=== PATIENT | female | born 1995 | race Hispanic/Latino ===

== ENCOUNTER 2023-05-01 13:32 | Emergency (ER) | payer OTHER ==
[~2023-05-01] VITALS: Ht 165.1 cm; Wt 93.0 kg
[2023-05-01 14:27] LABS: APPEARANCE,URINE CLEAR (CLEAR); BILIRUBIN,URINE NEGATIVE (NEGATIVE); COLOR,URINE LIGHT-YELLOW (YELLOW); GLUCOSE, URINE (UA) NEGATIVE (NEGATIVE); KETONES,URINE NEGATIVE (NEGATIVE); LEUKOCYTE ESTERASE ,URINE NEGATIVE Leu/uL (NEGATIVE); NITRATE,URINE NEGATIVE (NEGATIVE); OCCULT BLOOD,URINE NEGATIVE (NEGATIVE); PH,URINE 6.5 (5.0-8.0); PROTEIN,URINE NEGATIVE (NEGATIVE); UROBILINOGEN,URINE 0.2 mg/dL (0.2-1.0)
[2023-05-01 14:35] LABS: HCG,QUALITATIVE URINE NEGATIVE (NEGATIVE)
[2023-05-01 14:37] LABS: BACTERIA,URINE RARE /HPF (None Seen); MUCUS,URINE RARE LPF (None Seen); SQUAMOUS EPITHELIAL CELL,UR RARE /HPF (0-2)
[2023-05-01 17:04] VITALS: BP 135/80
[2023-05-01] MEDS ORDERED: KETOROLAC 30MG VIAL (30MG/ML) IM ONE (17:30)
[2023-05-01] MEDS ORDERED: MORPHINE 2 MG SYG IVP ONE (17:30)
[2023-05-01] MEDS ORDERED: ONDANSETRON 4MG INJ IVP ONE ×2 (17:30→21:30)
[2023-05-01 17:40] LABS: BASOPHILS % (AUTO) 0.3 % (0.0-5.0); EOSINOPHILS % (AUTO) 0.8 % (0.0-8.0); HEMATOCRIT 39.3 % (36-48); MEAN CORPUSCULAR HGB CONC 31.3 g/dL (32.0-36.0); MEAN CORPUSCULAR VOLUME 89.3 fL (79-99); MONOCYTES % (AUTO) 5.2 % (3.0-13.0); NEUTROPHILS % (AUTO) 69.3 % (40.0-77.0); PLATELET COUNT (AUTO) 270 K/uL (130-400); RED CELL DISTRIBUTION WIDTH 13.4 % (11.0-15.5); WHITE BLOOD COUNT (AUTO) 11.9 K/uL (4.8-10.8)
[2023-05-01 17:50] LABS: CREATININE 0.8 mg/dL (0.5-1.5); POTASSIUM 3.6 mmol/L (3.5-5.1)
[2023-05-01 17:54] LABS: ALBUMIN 3.7 g/dL (3.5-5.0)
[2023-05-01] MEDS ORDERED: IOHEXOL-350 75 ML VIAL IV ONE (19:59)
[2023-05-01] MEDS ORDERED: MORPHINE 4 MG SYG IVP ONE (21:30)
[2023-05-01] MEDS ORDERED: DOXY-252 PO (22:47)
[2023-05-01] MEDS ORDERED: ACET-2079 PO (22:47)
== END 2023-05-01 23:08 | disposition home or self-care (01) ==
LOC: EDH 13:32
DX: K64.8 Other hemorrhoids (principal); K64.4 Residual hemorrhoidal skin tags
CPT/HCPCS: 99285; 74177; 96374; 96375; 80053; 83690; 85025; 81001; 81025; 36415; 96376; J2270 ×2; J2405 ×2; Q9967

== ENCOUNTER 2023-12-08 17:23 | Emergency (ER) | payer BC, OTHER ==
[~2023-12-08] VITALS: Ht 165.1 cm; Wt 99.3 kg
[~2023-12-08 17:23] MED LIST: ACET-2079 PO; DOXY-252 PO
[2023-12-08 17:49] LABS: APPEARANCE,URINE CLEAR (CLEAR); BILIRUBIN,URINE NEGATIVE (NEGATIVE); COLOR,URINE LIGHT-YELLOW (YELLOW); GLUCOSE, URINE (UA) NEGATIVE (NEGATIVE); KETONES,URINE NEGATIVE (NEGATIVE); LEUKOCYTE ESTERASE ,URINE NEGATIVE Leu/uL (NEGATIVE); NITRATE,URINE NEGATIVE (NEGATIVE); OCCULT BLOOD,URINE NEGATIVE (NEGATIVE); PH,URINE 5.5 (5.0-8.0); PROTEIN,URINE NEGATIVE (NEGATIVE); UROBILINOGEN,URINE 0.2 mg/dL (0.2-1.0)
[2023-12-08 17:51] LABS: HCG,QUALITATIVE URINE NEGATIVE (NEGATIVE)
[2023-12-08 17:52] LABS: ADD UA MICROSCOPIC NO
[2023-12-08 18:10] VITALS: BP 131/80; PULSE 85; RESP 18; O2SAT 100
[2023-12-08] MEDS: KETOROLAC 60 MG VIAL (30MG/ML) IM ONE (18:21)
[2023-12-08] MEDS ORDERED: IBUP-2077 PO (18:25)
== END 2023-12-08 18:41 | disposition home or self-care (01) ==
LOC: EDH 17:23
DX: G89.18 Other acute postprocedural pain (principal); B97.7 Papillomavirus as the cause of diseases classified elsewhere
CPT/HCPCS: 99284; 81003; 81025; 96372; J1885

== ENCOUNTER 2023-12-25 11:20 | Emergency (ER) | payer BC ==
[~2023-12-25] VITALS: Ht 165.1 cm; Wt 95.3 kg
[~2023-12-25 11:20] MED LIST changes: +IBUP-2077 PO
[2023-12-25 12:35] VITALS: BP 149/69; PULSE 64; RESP 20
[2023-12-25 13:08] LABS: APPEARANCE,URINE CLEAR (CLEAR); BILIRUBIN,URINE NEGATIVE (NEGATIVE); COLOR,URINE COLORLESS (YELLOW); GLUCOSE, URINE (UA) NEGATIVE (NEGATIVE); KETONES,URINE NEGATIVE (NEGATIVE); LEUKOCYTE ESTERASE ,URINE NEGATIVE Leu/uL (NEGATIVE); NITRATE,URINE NEGATIVE (NEGATIVE); OCCULT BLOOD,URINE SMALL (NEGATIVE); PROTEIN,URINE NEGATIVE (NEGATIVE); UROBILINOGEN,URINE 0.2 mg/dL (0.2-1.0)
[2023-12-25 13:12] LABS: ADD UA MICROSCOPIC YES
[2023-12-25 13:15] LABS: HCG,QUALITATIVE URINE NEGATIVE (NEGATIVE)
[2023-12-25 13:18] LABS: BACTERIA,URINE RARE /HPF (None Seen); MUCUS,URINE RARE LPF (None Seen); RBC,URINE 0-1 /HPF (0-1); SQUAMOUS EPITHELIAL CELL,UR RARE /HPF (0-2)
[2023-12-25 13:45] LABS: BASOPHILS # (AUTO) 0.03 K/uL (0.00-0.20); BASOPHILS % (AUTO) 0.3 % (0.0-5.0); EOSINOPHILS # (AUTO) 0.08 K/uL (0.00-0.70); EOSINOPHILS % (AUTO) 0.8 % (0.0-8.0); HEMATOCRIT 36.4 % (36-48); IMMATURE GRANULOCYTE ABSOLUTE 0.04 K/uL (0-1); LYMPHOCYTES # (AUTO) 2.5 K/uL (1.0-4.8); LYMPHOCYTES % (AUTO) 24.2 % (21.0-51.0); MEAN CORPUSCULAR HGB CONC 32.4 g/dL (32.0-36.0); MEAN CORPUSCULAR VOLUME 86.3 fL (79-99); MONOCYTES # (AUTO) 0.6 K/uL (0.1-1.0); MONOCYTES % (AUTO) 6.1 % (3.0-13.0); NEUTROPHILS # (AUTO) 6.9 K/uL (1.8-7.7); NEUTROPHILS % (AUTO) 68.2 % (40.0-77.0); PLATELET COUNT (AUTO) 311 K/uL (130-400); RED BLOOD CELL COUNT(AUTO) 4.22 MIL/uL (4.00-5.50); RED CELL DISTRIBUTION WIDTH 14.2 % (11.0-15.5); WHITE BLOOD COUNT (AUTO) 10.2 K/uL (4.8-10.8)
[2023-12-25 13:55] LABS: CREATININE 0.7 mg/dL (0.5-1.5); POTASSIUM 4.3 mmol/L (3.5-5.1)
[2023-12-25 14:03] LABS: ALBUMIN 3.7 g/dL (3.5-5.0); BILIRUBIN,TOTAL 0.3 mg/dL (0.2-1.0); TOTAL PROTEIN, SERUM 7.7 g/dL (6.0-8.3)
[2023-12-25] MEDS ORDERED: IBUP-2070 PO (15:40)
== END 2023-12-25 15:49 | disposition home or self-care (01) ==
LOC: EDH 11:20
DX: R10.10 Upper abdominal pain, unspecified (principal)
CPT/HCPCS: 36415; 74176; 80053; 81001; 81025; 83690; 85025